=== PATIENT | female | born 1980 ===

== ENCOUNTER 2017-10-01 23:40 | Emergency (ER) | payer SELFPAY ==
[2017-10-02 00:32] VITALS: RESP 18
--- NOTE | 2017-10-02 03:06 | ED PDOC ---
HPI: General Adult Time Seen by Provider: 10/02/17 00:33 Chief Complaint (Nursing): Flu-like Symptoms Chief Complaint (Provider): Fever, body pain, headache History Per: Patient History/Exam Limitations: no limitations Onset/Duration Of Symptoms: Days (2) Have you had recent travel within the past 21 days to any of the following countries: [place], [place], [place] or [place]?: No Current Symptoms Are (Timing): Still Present Additional Complaint(s): 32 yo female with no medical problems presents with fever (103 on arrival) and body pain. Pt reports taking motrin last 4pm and tylenol on arrival to ER, order placed by video games storywriter. Pt also reports headache and denies cough. Past Medical History Reviewed: Historical Data, Nursing Documentation, Vital Signs Vital Signs: Last Vital Signs Temp 101.3 F H 10/02/17 01:36 Pulse 91 H 10/02/17 03:35 Resp 18 10/02/17 03:35 BP 118/61 10/02/17 03:35 Pulse Ox 97 10/02/17 03:35 - Medical History PMH: No Chronic Diseases - Surgical History Surgical History: No Surg Hx - Family History Family History: States: No Known Family Hx - Living Arrangements Living Arrangements: With Family - Home Medications Home Medications: Ambulatory Orders Medication Instructions Recorded Oseltamivir [Tamiflu] 75 mg PO BID #10 cap 10/02/17 - Allergies Allergies/Adverse Reactions: Allergies Allergy/AdvReac Type Severity Reaction Status Date / Time No Known Allergies Allergy Verified 10/02/17 00:29 Review of Systems ROS Statement: Except As Marked, All Systems Reviewed And Found Negative Constitutional: Positive for: Fever, Chills, Malaise Respiratory: Negative for: Cough Gastrointestinal: Negative for: Nausea, Vomiting, Abdominal Pain Physical Exam - Reviewed Nursing Documentation Reviewed: Yes Vital Signs Reviewed: Yes - Physical Exam Appears: Positive for: Well, Non-toxic, No Acute Distress Head Exam: Positive for: ATRAUMATIC, NORMAL INSPECTION, NORMOCEPHALIC Skin: Positive for: Normal Color, Warm, DRY Eye Exam: Positive for: Normal appearance ENT: Positive for: Normal ENT Inspection Neck: Positive for: Normal, Painless ROM Cardiovascular/Chest: Positive for: Regular Rate, Rhythm Respiratory: Positive for: CNT, Normal Breath Sounds Gastrointestinal/Abdominal: Positive for: Normal Exam Back: Positive for: Normal Inspection Extremity: Positive for: Normal ROM Neurologic/Psych: Positive for: Alert, Oriented - ECG O2 Sat by Pulse Oximetry: 98 Medical Decision Making Medical Decision Making: Influenza (+) Disposition - Clinical Impression Clinical Impression: Influenza - Patient ED Disposition Is Patient to be Admitted: No Counseled Patient/Family Regarding: Diagnosis, Need For Followup - Disposition Disposition: Routine/Home Disposition Time: 04:38 Condition: GOOD Prescriptions: Oseltamivir [Tamiflu] 75 mg PO BID #10 cap Instructions: Influenza (ED) Forms: [employer] [facility] [place] [facility] ([place]arian), [facility] ED School/Work Excuse Print Language: [place]
[2017-10-02 03:35] VITALS: TEMP 101.3
[2017-10-02 03:36] VITALS: BP 118/61; PULSE 91
[2017-10-02 04:39] VITALS: O2SAT 98
== END 2017-10-02 05:11 | disposition home or self-care (01) ==
LOC: H.ER 23:40
DX: J11.1 Influenza due to unidentified influenza virus with other respiratory manifestations (principal)